=== PATIENT | female | born 1945 | race Caucasian/White ===

== ENCOUNTER 2018-04-14 23:23 | Inpatient (IN) | payer BC, MEDICARE ==
--- NOTE | 2018-04-14 23:41 | ERNOTE ---
GI Bleeding/Rectal Pain ER Presenting Symptoms: rectal bleeding Time Seen by Provider: 04/14/18 23:28 Source: patient Exam Limitations: no limitations Allergies/Adverse Reactions: Allergies alendronate sodium [From Fosamax] Allergy (Verified 04/14/18 23:39) pneumococcal 23-valent polysacchari [From Pneumovax 23] Allergy (Verified 23:39) escitalopram oxalate [From Lexapro] Adverse Reaction (Mild, Verified 04/14/18 23 :39) Rapid Heart Rate Home Medications: HOME MEDICATIONS Letrozole [Femara] 2.5 mg PO DAILY 12/06/14 [Last Taken 12/06/14 08:00 2.5mg] Levothyroxine Sodium [Synthroid] 50 mcg PO DAILY 12/06/14 [Last Taken 04/14/18 10:00] Lisinopril [Zestril] 10 mg PO DAILY 12/06/14 [Last Taken 04/14/18 10:00] Pravastatin Sodium [Pravachol] 40 mg PO HS 12/06/14 [Last Taken 04/13/18 21:00] amLODIPine BESYLATE [Norvasc] 2.5 mg PO DAILY 12/06/14 [Last Taken 04/14/18 10: 00] buPROPion HCL [Wellbutrin SR, Zyban] 150 mg PO BID 12/06/14 [Last Taken 10:00] Calcium Carbonate/Vitamin D3 [Calcium 500 mg-Vit D3 600 Unit] 1 tab PO BID 04/14 [Last Taken 04/14/18 10:00] Metoprolol Tartrate [Lopressor] 25 mg PO BID 04/14/18 [Last Taken 04/14/18 10:00 ] Narrative: Pt had onset of BRB per rectum this evening. She tried to rest then had another BM that was darker but still mostly blood. She presented to the ED at [facility] and found to have h/h of 14.3/41.4 and an hour later 13.6/ 39.1. They do not have surgical coverage and thus felt they could not keep this patient for observation. I was called by Dr. Janette Fajardo from [place] requesting transfer. I called and spoke with Dr. Rubin Marie and he agreed we could accept the patient in transfer and admit observation to watch her hemodynamic status and treat if necessary. Upon arrival pt is A&O and INAD. Timing: getting worse Quality/Severity: Present: moderate, cramping Date of Last Bowel Movement: 04/14/18 - Bloody BM at [facility] Abdominal Pain: Present: suprapubic Rectal Bleeding: Present: bloody diarrhea Associated Symptoms: Reports: light headedness - initially but not consistant Review of Systems - Review of Systems Constitutional: Absent: recent illness, fever, chills EYE: Absent: vision changes Respiratory: Absent: shortness of breath Cardiology: Absent: chest pain Gastrointestinal/Abdominal: Present: See HPI, nausea, constipation - usually . Absent: vomiting Genitourinary: Absent: frequency, dysuria Musculoskeletal: Absent: back pain, muscle pain Skin: Absent: rash Neurological: Present: dizziness/light-headedness Endocrine: Present: excessive sweating, flushing Hematologic/Lymphatic: Absent: easy bruising, easy bleeding Medical History (Last Updated 04/14/18 @ 23:45 by Michaela Phillips RN) Breast cancer (Acute) Hypothyroid (Acute) Depression (Acute) Hypertension (Acute) Hyperlipemia (Acute) H/O lumpectomy Tubal ligation status Surgical History: Surgical History (Last Updated 04/14/18 @ 23:45 by Michaela Phillips, RN) History of lumpectomy of left breast History of tonsillectomy and adenoidectomy Family History: Family History (Last Updated 04/14/18 @ 23:47 by Michaela Phillips, RN) Daughter Acute ulcerative colitis Mother CAD (coronary artery disease) Social History: Preferred Language [place] Psych History No pertinent hx Physical Exam - Physical Exam General Appearance: Present: wd/wn, alert, no apparent distress Head Exam: Present: normal inspection, no evidence of injury Neck: Present: normal inspection, nontender, supple Respiratory: Present: no respiratory distress, normal breath sounds, no accessory muscle use, lungs clear Cardiovascular/Chest: Present: regular rate, rhythm, no murmur Gastrointestinal/Abdominal: Present: normal bowel sounds, nondistended, tenderness - mild periumbilical/ suprapubic. Absent: guarding, rebound Back Exam: Present: normal inspection, no CVA tenderness, no vertebral tenderness Extremity Exam: Present: normal inspection, normal range of motion, no edema Neurological Exam: Present: alert, oriented, normal mood/affect, no motor/ sensory deficits Skin Exam: Present: normal color, warm/dry Lymphatic Exam: Present: no adenopathy ED Progress - Results and Orders Patient's Lab Results:: I have reviewed the patient's lab results. Results and Orders: Laboratory Tests 04/14/18 04/14/18 23:45 23:45 WBC 13.7 H Hgb 13.4 Hct 40.2 PT 11.0 INR (Anticoag Therapy) 1.10 PTT ([place]) 22.7 L - Vital Signs Patient's Vital Signs:: I have reviewed the patient's vital signs. - Progress/Reassessment Progress:: Improved Progress Note-Subjective: 04/15/18 01:20 Pt's daughter questioned why we were not doing a CT scan. I explained that at this time it would not give us much information as she does not have significant symptoms and the gastrographin may actually irritate the problem. I assured her that if the patients condition does worsen then CT or other tests could be done and that for now we will watch her blood counts carefully and do further testing as needed. Daughter stated that she felt better about that. Departure Clinical Impression: Gastrointestinal bleeding, lower - Departure Disposition: Still a patient Condition: Good
[2018-04-14 23:50] LABS: Hematocrit 40.2 % (37.0-47.0); Hemoglobin 13.4 gm/dL (12.5-16.0); Mean Cell Volume 90.3 fl (78-100); Mean Corpuscular Hemoglobin 30.1 pg (27-31); Mean Corpuscular Hgb Conc 33.3 g/dl (32-36); Mean Platelet Volume 11.9 fl (8-12.5); Platelet Count 169 K/mm3 (150-450); Red Blood Count 4.45 M/mm3 (4.2-5.4); Red Cell Distribution Width 13.2 % (11.5-14.0); White Blood Count 13.7 K/mm3 (4.0-10.5)
[2018-04-15 00:30] LABS: INR 1.1 INR (0.90-1.10); Partial Thrombolplastin Time 22.7 Seconds (24-32)
[2018-04-15 03:01] LABS: Hemoglobin 12.9 gm/dL (12.5-16.0); Mean Corpuscular Hemoglobin 30.2 pg (27-31); Mean Corpuscular Hgb Conc 33.9 g/dl (32-36); Mean Platelet Volume 11.1 fl (8-12.5); Platelet Count 168 K/mm3 (150-450); Red Blood Count 4.27 M/mm3 (4.2-5.4); Red Cell Distribution Width 13.2 % (11.5-14.0); White Blood Count 15.2 K/mm3 (4.0-10.5)
[2018-04-15 07:21] LABS: Hematocrit 38.7 % (37.0-47.0); Hemoglobin 13.3 gm/dL (12.5-16.0); Mean Cell Volume 88.4 fl (78-100); Mean Corpuscular Hemoglobin 30.4 pg (27-31); Mean Corpuscular Hgb Conc 34.4 g/dl (32-36); Mean Platelet Volume 11.4 fl (8-12.5); Platelet Count 192 K/mm3 (150-450); Red Blood Count 4.38 M/mm3 (4.2-5.4); Red Cell Distribution Width 13.2 % (11.5-14.0); White Blood Count 17.2 K/mm3 (4.0-10.5)
[2018-04-15] MEDS: METOPROLOL TARTRATE 25 MG TABLET PO SCH ×2 (10:46→20:26)
[2018-04-15] MEDS: amLODIPine BESYLATE 5 MG TABLET PO SCH (10:46)
[2018-04-15] MEDS: LISINOPRIL 10 MG TABLET PO SCH (10:47)
[2018-04-15] MEDS: buPROPion HCL 150 MG TABLET.SA PO SCH ×2 (10:47→20:27)
[2018-04-15] MEDS: LEVOTHYROXINE SODIUM 50 MCG TABLET PO SCH (10:47)
[2018-04-15 11:29] LABS: Hematocrit 37.3 % (37.0-47.0); Hemoglobin 13.1 gm/dL (12.5-16.0); Mean Corpuscular Hemoglobin 30.9 pg (27-31); Mean Corpuscular Hgb Conc 35.1 g/dl (32-36); Mean Platelet Volume 11.5 fl (8-12.5); Platelet Count 177 K/mm3 (150-450); Red Blood Count 4.24 M/mm3 (4.2-5.4); Red Cell Distribution Width 13.2 % (11.5-14.0); White Blood Count 17.2 K/mm3 (4.0-10.5)
--- NOTE | 2018-04-15 16:49 | HP ---
Chief Complaint - Chief Complaint Date of Service: 04/15/18 Time of Service: 09:45 Chief Complaint: Bright Red Blood In Stool History of Present Illness: Brionna is a 72 yo female that began having bright red blood per rectum last evening. She does report bowel movements tend to be constipation and she does have to strain at times. She denies fever, chills. She has had diffuse abdominal pain and weakness. She has not felt any hemorrhoids. She has had routine colonoscopies, but believes it has been about 12 years since her last one and is due. She reports other than constipation she does not usually have bowel problems. She presented initially to the [place] ER but was transferred here overnight for admission with observation as they did not have a surgeon available. Medical History (Last Reviewed 04/25/18 @ 13:23 by Herminia Hurtado RN) Breast cancer (Acute) Hypothyroid (Acute) Depression (Acute) Hypertension (Acute) Hyperlipemia (Acute) H/O lumpectomy Tubal ligation status Surgical History: Surgical History (Last Reviewed 04/25/18 @ 13:23 by Herminia Hrutado RN) History of lumpectomy of left breast History of tonsillectomy and adenoidectomy Family History: Family History (Last Reviewed 04/25/18 @ 13:23 by Herminia Hurtado RN) Daughter Acute ulcerative colitis Chronic colitis Mother CAD (coronary artery disease) Social History: Patient Lives/Resources Home Utilized Occupation retired Preferred Language Citizen Of The [place] Do you have any yazidi or No cultural preference? Smoking Status Former smoker Have you smoked in the past 12 No months Do you dip or chew tobacco No Psych History No pertinent hx Alcohol Use none Drug Use none Review Of Systems (GEN) - Review of Systems Generalized/Overall Review: Present: Weakness, Fatigue. Absent: Chills, Fever EENTM: Present: No Symptoms Reported Respiratory: Present: No Symptoms Reported Cardiac: Present: No Symptoms Reported Abdominal: Present: Nausea, Abdominal Pain, Constipation, Bright blood from rectum Genitourinary: Present: No Symptoms Reported Musculoskeletal: Present: No Symptoms Reported Neurological: Present: No Symptoms Reported Skin: Present: No Symptoms Reported Endocrine: Present: No Symptoms Reported Immunizations: IMMUNIZATION HX Immunizations Up to Date Yes History of Influenza Vaccine Yes Hx Pneumococcal Vaccination Yes Allergies/Adverse Reactions: Allergies Allergy/AdvReac Type Severity Reaction Status Date / Time alendronate sodium Allergy Verified 04/25/18 13:18 [From Fosamax] pneumococcal 23-valent Allergy Verified 04/25/18 13:18 polysacchari [From Pneumovax 23] escitalopram oxalate AdvReac Mild Verified 04/25/18 13:18 [From Lexapro] Home Medications: HOME MEDICATIONS Letrozole [Femara] 2.5 mg PO DAILY 12/06/14 [Last Taken 12/06/14 08:00 2.5mg] Levothyroxine Sodium [Synthroid] 50 mcg PO DAILY 12/06/14 [Last Taken 04/14/18 10:00] Lisinopril [Zestril] 10 mg PO DAILY 12/06/14 [Last Taken 04/14/18 10:00] Pravastatin Sodium [Pravachol] 40 mg PO HS 12/06/14 [Last Taken 04/13/18 21:00] amLODIPine BESYLATE [Norvasc] 2.5 mg PO DAILY 12/06/14 [Last Taken 04/14/18 10: 00] buPROPion HCL [Wellbutrin Sr, Zyban] 150 mg PO BID 12/06/14 [Last Taken 10:00] Calcium Carbonate/Vitamin D3 [Calcium 500 mg-Vit D3 600 Unit] 1 tab PO BID 04/14 [Last Taken 04/14/18 10:00] Metoprolol Tartrate [Lopressor] 25 mg PO BID 04/14/18 [Last Taken 04/14/18 10:00 ] Acetaminophen [Tylenol] 650 mg PO Q6H PRN tablet 04/19/18 [Last Taken Unknown] Levofloxacin [Levaquin] 750 mg PO DAILY #7 tab 04/19/18 [Last Taken Unknown] metronidazole 500 mg tablet 500 mg PO Q8H tab 04/25/18 [Last Taken Unknown] Exam - Exam Vital Signs: Vital Signs - Last Taken Temp 37.6 C 04/15/18 16:13 Pulse 92 04/15/18 16:13 Resp 16 04/15/18 16:13 BP 146/76 04/15/18 16:13 Pulse Ox 94 04/15/18 16:13 Constitutional: Present: Alert, Oriented x3, Cooperative ENT Exam: Present: hearing grossly normal Eye Exam: bilateral eye: normal inspection Respiratory: Present: chest non-tender, lungs clear, normal breath sounds Cardiovascular/Chest: Present: regular rate, rhythm, no murmur Abdomen: Present: Normal bowel sounds, soft, nondistended, tender - mild diffuse tenderness Extremity: Present: normal range of motion, non-tender, normal inspection, no pedal edema Skin Exam: Present: normal color, warm/dry, no cyanosis Eye contact: Present: cooperative, good eye contact, normal speech Diagnostic Studies: Abnormal Lab Results 04/14/18 04/14/18 04/15/18 Range/Units 23:45 23:45 03:00 WBC 13.7 H 15.2 H (4.0-10.5) K/mm3 PTT ([place]) 22.7 L (24-32) Seconds 04/15/18 04/15/18 Range/Units 07:12 11:24 WBC 17.2 H 17.2 H (4.0-10.5) K/mm3 PTT ([place]) (24-32) Seconds Laboratory Results WBC 17.2 K/mm3 (4.0-10.5) H 04/15/18 11:24 RBC 4.24 M/mm3 (4.2-5.4) 04/15/18 11:24 Hgb 13.1 gm/dL (12.5-16.0) 04/15/18 11:24 Hct 37.3 % (37.0-47.0) 04/15/18 11:24 MCV 88.0 fl (78-100) 04/15/18 11:24 MCH 30.9 pg (27-31) 04/15/18 11:24 MCHC 35.1 g/dl (32-36) 04/15/18 11:24 RDW 13.2 % (11.5-14.0) 04/15/18 11:24 Plt Count 177 K/mm3 (150-450) 04/15/18 11:24 MPV 11.5 fl (8-12.5) 04/15/18 11:24 PT 11.0 Seconds (9.0-11.0) 04/14/18 23:45 INR (Anticoag Therapy) 1.10 INR (0.90-1.10) 04/14/18 23:45 PTT ([place]) 22.7 Seconds (24-32) L 04/14/18 23:45 Assessment/Plan - Assessment/Plan (1) Gastrointestinal bleeding, lower Assessment: Brionna is a 72 yo female with acute GI Bleed. Hemoglobin is fairly normal but she is having bright red blood per rectum. Suspect bleeding internal hemorrhoid vs bleeding diverticula. Will admit to observation and monitor serial hemoglobins. If hemoglobin drops may need general surgery consult and blood transfusion. Problem: Acute
[2018-04-15 17:08] LABS: Hemoglobin 13.4 gm/dL (12.5-16.0); Mean Cell Volume 89.2 fl (78-100); Mean Corpuscular Hemoglobin 30.7 pg (27-31); Mean Corpuscular Hgb Conc 34.4 g/dl (32-36); Mean Platelet Volume 12.1 fl (8-12.5); Platelet Count 206 K/mm3 (150-450); Red Blood Count 4.37 M/mm3 (4.2-5.4); Red Cell Distribution Width 13.4 % (11.5-14.0)
[2018-04-15 17:21] LABS: Albumin * 3.6 gm/dl (3.4-5.0); Anion Gap 16.5 mmol/L (6.8-13.8); BUN/Creatinine Ratio 15.9 (9.0-21.6); Bilirubin, Total 0.6 mg/dL (0.0-1.1); Ca. Corrected For Albumin 9.5 mg/dL (8.4-10.2); Calcium * 9.5 mg/dL (7.9-10.9); Carbon Dioxide 20.9 mmol/L (24-32.6); Potassium 4.4 mmol/L (3.4-4.6)
[2018-04-15 17:26] LABS: Total Cells Counted 100
[2018-04-15 18:01] LABS: Band 8 % (0-2.0); Lymphocyte 10 % (20-51); Monocyte 8 % (0-9); Neutrophil 74 % (42-75); Neutrophil # 14.8 K/mm3 (1.3-6.0)
[2018-04-15 18:02] LABS: Platelet Estimate Normal (NORMAL); RBC Morphology Normal (NORMAL)
[2018-04-15] MEDS ORDERED: DIATRIZOATE MEGLUMINE, SODIUM 30 ML BTL PO ONE (20:01)
[2018-04-15] MEDS: CALCIUM CARBONATE/VITAMIN D3 1 TAB TABLET PO SCH (20:26)
[2018-04-15] MEDS: SIMVASTATIN 20 MG TABLET PO SCH (20:28)
[2018-04-15] MEDS: ONDANSETRON HCL/PF 2 MG/ML VIAL IV PRN (22:15)
[2018-04-16] MEDS: CALCIUM CARBONATE/VITAMIN D3 1 TAB TABLET PO SCH ×3 (01:15→20:57)
[2018-04-16] MEDS ORDERED: ACETAMINOPHEN 325 MG TABLET PO PRN (03:03)
[2018-04-16 05:23] LABS: Hematocrit 32.5 % (37.0-47.0); Hemoglobin 11.2 gm/dL (12.5-16.0); Mean Cell Volume 88.1 fl (78-100); Mean Corpuscular Hemoglobin 30.4 pg (27-31); Mean Corpuscular Hgb Conc 34.5 g/dl (32-36); Mean Platelet Volume 11.5 fl (8-12.5); Platelet Count 150 K/mm3 (150-450); Red Blood Count 3.69 M/mm3 (4.2-5.4); Red Cell Distribution Width 13.5 % (11.5-14.0); White Blood Count 15.4 K/mm3 (4.0-10.5)
[2018-04-16 05:36] LABS: Total Cells Counted 100
[2018-04-16 05:38] LABS: Anion Gap 13.4 mmol/L (6.8-13.8); BUN/Creatinine Ratio 16.7 (9.0-21.6); Bilirubin, Total 0.5 mg/dL (0.0-1.1); Ca. Corrected For Albumin 9.4 mg/dL (8.4-10.2); Calcium * 8.9 mg/dL (7.9-10.9); Carbon Dioxide 23.8 mmol/L (24-32.6); Potassium 4.2 mmol/L (3.4-4.6)
[2018-04-16 05:40] LABS: Band 28 % (0-2.0); Dohle Bodies 1+; Immature Granulocyte 1 (0-1); Lymphocyte 6 % (20-51); Neutrophil 65 % (42-75); Platelet Estimate Normal (NORMAL); Toxic Granulation 1+
[2018-04-16] MEDS: NORMAL SALINE 1,000 ML IV PRN ×2 (05:49→21:04)
[2018-04-16] MEDS ORDERED: LEVOFLOXACIN IN DEXTROSE 5 % 750 MG/150 ML BAG IV ONE (06:00)
[2018-04-16] MEDS: metroNIDAZOLE/SODIUM CHLORIDE 500 MG/100 ML BAG IV SCH ×2 (08:11→15:15)
[2018-04-16] MEDS: METOPROLOL TARTRATE 25 MG TABLET PO SCH ×2 (08:12→20:58)
[2018-04-16] MEDS: LEVOTHYROXINE SODIUM 50 MCG TABLET PO SCH (08:12)
[2018-04-16] MEDS: SACCHAROMYCES BOULARDII 250 MG CAPSULE PO SCH ×2 (08:12→20:57)
[2018-04-16] MEDS: LISINOPRIL 10 MG TABLET PO SCH (08:12)
[2018-04-16] MEDS: amLODIPine BESYLATE 5 MG TABLET PO SCH (08:13)
[2018-04-16] MEDS: buPROPion HCL 150 MG TABLET.SA PO SCH ×2 (08:13→21:00)
[2018-04-16] MEDS ORDERED: CALCIUM CARBONATE 500 MG TAB.CHEW PO PRN (16:23)
[2018-04-16] MEDS: SIMVASTATIN 20 MG TABLET PO SCH (21:01)
[2018-04-17] MEDS: metroNIDAZOLE/SODIUM CHLORIDE 500 MG/100 ML BAG IV SCH ×3 (00:03→16:13)
[2018-04-17] MEDS: ONDANSETRON HCL/PF 2 MG/ML VIAL IV PRN (07:49)
[2018-04-17] MEDS: PANTOPRAZOLE SODIUM 40 MG TABLET.EC PO SCH (07:49)
[2018-04-17 08:44] LABS: Hematocrit 32.2 % (37.0-47.0); Mean Corpuscular Hemoglobin 30.4 pg (27-31); Mean Corpuscular Hgb Conc 34.2 g/dl (32-36); Mean Platelet Volume 12.1 fl (8-12.5); Platelet Count 130 K/mm3 (150-450); Red Blood Count 3.62 M/mm3 (4.2-5.4); Red Cell Distribution Width 13.6 % (11.5-14.0); White Blood Count 14.1 K/mm3 (4.0-10.5)
[2018-04-17 08:45] LABS: Total Cells Counted 100
[2018-04-17 08:54] LABS: Albumin * 2.6 gm/dl (3.4-5.0); Anion Gap 12.4 mmol/L (6.8-13.8); BUN/Creatinine Ratio 12.3 (9.0-21.6); Bilirubin, Total 0.5 mg/dL (0.0-1.1); Ca. Corrected For Albumin 9.3 mg/dL (8.4-10.2); Calcium * 8.5 mg/dL (7.9-10.9); Potassium 3.4 mmol/L (3.4-4.6); Total Protein 5.9 gm/dL (6.2-8.2)
[2018-04-17] MEDS: METOPROLOL TARTRATE 25 MG TABLET PO SCH ×2 (09:25→20:22)
[2018-04-17] MEDS: SACCHAROMYCES BOULARDII 250 MG CAPSULE PO SCH ×2 (09:25→20:22)
[2018-04-17] MEDS: amLODIPine BESYLATE 5 MG TABLET PO SCH (09:25)
[2018-04-17] MEDS: LEVOTHYROXINE SODIUM 50 MCG TABLET PO SCH (09:25)
[2018-04-17] MEDS: LISINOPRIL 10 MG TABLET PO SCH (09:26)
[2018-04-17] MEDS: buPROPion HCL 150 MG TABLET.SA PO SCH ×2 (09:26→20:23)
[2018-04-17] MEDS: CALCIUM CARBONATE/VITAMIN D3 1 TAB TABLET PO SCH ×2 (09:26→20:22)
[2018-04-17 09:28] LABS: Band 14 % (0-2.0); Lymphocyte 7 % (20-51); Monocyte 8 % (0-9); Neutrophil 71 % (42-75)
[2018-04-17 09:29] LABS: Platelet Estimate Decreased (NORMAL)
[2018-04-17 09:32] LABS: Dohle Bodies Trace; RBC Morphology Normal (NORMAL); Toxic Granulation 1+
[2018-04-17] MEDS ORDERED: CALCIUM CARBONATE 500 MG TAB.CHEW PO PRN (09:59)
--- NOTE | 2018-04-17 09:59 | PN ---
Subjective - Date and Time Seen Date: 04/16/18 Time: 12:30 Subjective Narrative: Continues to have dark bloody stools, feels fatigue. Diffuse abdominal pain. CT overnight performed for fever and worsening abdominal pain. CT showed evidence of severe colitis. Today family reports that she had been cooking chicken for a home made gabonese meal and was touching a lot of raw chicken in preparation for the meal. Objective - Vitals Vitals: Last Vital Signs - Abnormal Lab Findings Abnormal Lab Findings: Abnormal Lab Results 04/17/18 04/17/18 Range/Units 08:35 08:35 WBC 14.1 H (4.0-10.5) K/mm3 RBC 3.62 L (4.2-5.4) M/mm3 Hgb 11.0 L (12.5-16.0) gm/dL Hct 32.2 L (37.0-47.0) % Plt Count 130 L (150-450) K/mm3 Band Neuts % (Manual) 14 H (0-2.0) % Lymphocytes % (Manual) 7 L (20-51) % Neutrophils # (Manual) 10.0 H (1.3-6.0) K/mm3 Lymphocytes # (Manual) 1.0 L (1.5-3.5) k/mm3 Monocytes # (Manual) 1.1 H (0.0-1.0) k/mm3 Platelet Estimate Decreased L (NORMAL) Sodium 131 L (132-142) mmol/L Carbon Dioxide 21.0 L (24-32.6) mmol/L Creatinine 1.54 H D (0.4-1.4) mg/dL Est GFR (Non-Af Amer) 35 L D (60-130) mL/min Random Glucose 113 H (70-110) mg/dL ALT 15 L (19-67) U/L Total Protein 5.9 L (6.2-8.2) gm/dL Albumin 2.6 L (3.4-5.0) gm/dl - Exam Constitutional: Present: Alert, Oriented x3, Cooperative Respiratory: Present: lungs clear, respiratory distress Cardiovascular/Chest: Present: regular rate, rhythm, no murmur Abdomen: Present: Normal bowel sounds, soft, nondistended, tender - diffuse tenderness. Absent: guarding, firm Skin Exam: Present: normal color, warm/dry, no cyanosis Assessment/Plan - Problems/Diagnosis (1) Infectious colitis Problem: Acute Narrative: Suspicious of infectious colitis possibly salmanella due to handling uncooked chicken. Will treat with floroquinolone for coverage as well as flagyl. No evidence of abscess or perforation on CT. Bleeding appears to have stopped as blood in stool is dark and hemoglobin is stable. WBC elevating. Will admit to acute inpatient status, will take a few days of antibiotics IV to see that WBC is trending down. Will get stool culture.
--- NOTE | 2018-04-17 10:00 | PN ---
Subjective - Date and Time Seen Date: 04/17/18 Time: 10:00 Subjective Narrative: Reports feeling a little better today. Still weak, but less abdominal pain. Stools still dark maroon. Objective - Vitals Vitals: Last Vital Signs Temp 35.5 C L 04/17/18 06:54 Pulse 87 04/17/18 09:26 Resp 17 04/17/18 06:54 BP 137/58 04/17/18 09:26 Pulse Ox 94 04/17/18 06:54 - Abnormal Lab Findings Abnormal Lab Findings: Abnormal Lab Results 04/17/18 04/17/18 Range/Units 08:35 08:35 WBC 14.1 H (4.0-10.5) K/mm3 RBC 3.62 L (4.2-5.4) M/mm3 Hgb 11.0 L (12.5-16.0) gm/dL Hct 32.2 L (37.0-47.0) % Plt Count 130 L (150-450) K/mm3 Band Neuts % (Manual) 14 H (0-2.0) % Lymphocytes % (Manual) 7 L (20-51) % Neutrophils # (Manual) 10.0 H (1.3-6.0) K/mm3 Lymphocytes # (Manual) 1.0 L (1.5-3.5) k/mm3 Monocytes # (Manual) 1.1 H (0.0-1.0) k/mm3 Platelet Estimate Decreased L (NORMAL) Sodium 131 L (132-142) mmol/L Carbon Dioxide 21.0 L (24-32.6) mmol/L Creatinine 1.54 H D (0.4-1.4) mg/dL Est GFR (Non-Af Amer) 35 L D (60-130) mL/min Random Glucose 113 H (70-110) mg/dL ALT 15 L (19-67) U/L Total Protein 5.9 L (6.2-8.2) gm/dL Albumin 2.6 L (3.4-5.0) gm/dl - Exam Constitutional: Present: Alert, Oriented x3, Cooperative Respiratory: Present: lungs clear, normal breath sounds, no respiratory distress Cardiovascular/Chest: Present: regular rate, rhythm, no murmur Abdomen: Present: Normal bowel sounds, soft, nondistended, tender - mild diffuse tenderness Skin Exam: Present: normal color, warm/dry, no cyanosis Assessment/Plan - Problems/Diagnosis (1) Infectious colitis Problem: Acute Narrative: Improving today after starting antibiotics. Hgb stable. Continue antibiotics, will start advancing diet as tolerated.
[2018-04-17] MEDS: ONDANSETRON HCL/PF 2 MG/ML VIAL IV SCH ×3 (11:28→20:24)
[2018-04-17] MEDS: NORMAL SALINE 1,000 ML IV PRN (13:29)
[2018-04-17] MEDS: SIMVASTATIN 20 MG TABLET PO SCH (20:23)
[2018-04-18] MEDS: metroNIDAZOLE/SODIUM CHLORIDE 500 MG/100 ML BAG IV SCH ×4 (00:44→23:54)
[2018-04-18] MEDS: NORMAL SALINE 1,000 ML IV PRN ×2 (04:52→20:51)
[2018-04-18 05:20] LABS: Hematocrit 30.1 % (37.0-47.0); Hemoglobin 10.4 gm/dL (12.5-16.0); Mean Cell Volume 88.5 fl (78-100); Mean Corpuscular Hemoglobin 30.6 pg (27-31); Mean Corpuscular Hgb Conc 34.6 g/dl (32-36); Mean Platelet Volume 11.9 fl (8-12.5); Platelet Count 147 K/mm3 (150-450); Red Cell Distribution Width 13.6 % (11.5-14.0); White Blood Count 11.6 K/mm3 (4.0-10.5)
[2018-04-18 05:28] LABS: Total Cells Counted 100
[2018-04-18 05:32] LABS: Albumin * 2.4 gm/dl (3.4-5.0); Anion Gap 8.5 mmol/L (6.8-13.8); BUN/Creatinine Ratio 7.9 (9.0-21.6); Bilirubin, Total 0.3 mg/dL (0.0-1.1); Ca. Corrected For Albumin 9.2 mg/dL (8.4-10.2); Calcium * 8.2 mg/dL (7.9-10.9); Carbon Dioxide 20.5 mmol/L (24-32.6); Total Protein 5.4 gm/dL (6.2-8.2)
[2018-04-18 05:48] LABS: Band 12 % (0-2.0); Lymphocyte 7 % (20-51); Monocyte 6 % (0-9); Neutrophil 75 % (42-75); Neutrophil # 8.7 K/mm3 (1.3-6.0)
[2018-04-18 05:51] LABS: Platelet Estimate Decreased (NORMAL)
[2018-04-18 05:52] LABS: RBC Morphology Normal (NORMAL)
[2018-04-18] MEDS ORDERED: LEVOFLOXACIN IN DEXTROSE 5 % 500 MG/100 ML BAG IV SCH (06:00)
[2018-04-18] MEDS: FEMARA 2.5 MG PO SCH ×2 (07:24→09:46)
[2018-04-18] MEDS: PANTOPRAZOLE SODIUM 40 MG TABLET.EC PO SCH (07:30)
[2018-04-18] MEDS: ONDANSETRON HCL/PF 2 MG/ML VIAL IV SCH ×2 (07:30→10:42)
[2018-04-18] MEDS ORDERED: POTASSIUM CHLORIDE 20 MEQ TABLET.SA PO ONE (09:00)
[2018-04-18] MEDS: buPROPion HCL 150 MG TABLET.SA PO SCH ×2 (09:41→20:45)
[2018-04-18] MEDS: CALCIUM CARBONATE/VITAMIN D3 1 TAB TABLET PO SCH ×2 (09:41→20:43)
[2018-04-18] MEDS: LEVOTHYROXINE SODIUM 50 MCG TABLET PO SCH (09:41)
[2018-04-18] MEDS: amLODIPine BESYLATE 5 MG TABLET PO SCH (09:41)
[2018-04-18] MEDS: LISINOPRIL 10 MG TABLET PO SCH (09:41)
[2018-04-18] MEDS: METOPROLOL TARTRATE 25 MG TABLET PO SCH ×2 (09:41→20:45)
[2018-04-18] MEDS: SACCHAROMYCES BOULARDII 250 MG CAPSULE PO SCH ×2 (09:41→20:44)
[2018-04-18] MEDS ORDERED: ONDANSETRON HCL/PF 2 MG/ML VIAL IV PRN (15:57)
[2018-04-18] MEDS: SIMVASTATIN 20 MG TABLET PO SCH (20:44)
[2018-04-19] MEDS: FEMARA 2.5 MG PO SCH ×2 (06:15→08:18)
[2018-04-19] MEDS: PANTOPRAZOLE SODIUM 40 MG TABLET.EC PO SCH (06:21)
[2018-04-19] MEDS: metroNIDAZOLE/SODIUM CHLORIDE 500 MG/100 ML BAG IV SCH (07:01)
[2018-04-19] MEDS: LEVOTHYROXINE SODIUM 50 MCG TABLET PO SCH (08:18)
[2018-04-19] MEDS: SACCHAROMYCES BOULARDII 250 MG CAPSULE PO SCH (08:18)
[2018-04-19] MEDS: CALCIUM CARBONATE/VITAMIN D3 1 TAB TABLET PO SCH (08:18)
[2018-04-19] MEDS: buPROPion HCL 150 MG TABLET.SA PO SCH (08:19)
[2018-04-19] MEDS: amLODIPine BESYLATE 5 MG TABLET PO SCH (08:19)
[2018-04-19] MEDS: LISINOPRIL 10 MG TABLET PO SCH (08:19)
[2018-04-19] MEDS: METOPROLOL TARTRATE 25 MG TABLET PO SCH (08:20)
[2018-04-19 09:57] LABS: Hematocrit 30.8 % (37.0-47.0); Hemoglobin 10.6 gm/dL (12.5-16.0); Mean Corpuscular Hemoglobin 30.3 pg (27-31); Mean Corpuscular Hgb Conc 34.4 g/dl (32-36); Mean Platelet Volume 11.6 fl (8-12.5); Neutrophil # 6.9 K/mm3 (1.3-6.0); Neutrophil % 71.7 % (42-75.0); Platelet Count 174 K/mm3 (150-450); Red Cell Distribution Width 13.8 % (11.5-14.0); White Blood Count 9.6 K/mm3 (4.0-10.5)
[2018-04-19 10:45] LABS: Albumin * 2.5 gm/dl (3.4-5.0); Anion Gap 10.9 mmol/L (6.8-13.8); BUN/Creatinine Ratio 4.3 (9.0-21.6); Bilirubin, Total 0.3 mg/dL (0.0-1.1); Ca. Corrected For Albumin 8.7 mg/dL (8.4-10.2); Calcium * 7.8 mg/dL (7.9-10.9); Carbon Dioxide 21.3 mmol/L (24-32.6); Potassium 3.2 mmol/L (3.4-4.6); Total Protein 5.6 gm/dL (6.2-8.2)
--- NOTE | 2018-04-19 12:39 | PN ---
Subjective - Date and Time Seen Date: 04/18/18 Time: 12:39 Subjective Narrative: Feeling much better today. No fever, abdominal pain is gone. Tolerating food with taking zofran prior to eating. Objective - Vitals Vitals: Last Vital Signs Selected Entries 04/18/18 10:31 Temperature 36.4 C Pulse Rate 77 Respiratory Rate 16 Blood Pressure 123/63 O2 Sat by Pulse Oximetry 96 Oxygen Delivery Method Room Air - Abnormal Lab Findings Abnormal Lab Findings: Abnormal Lab Results - Exam Constitutional: Present: Alert, Oriented x3, Cooperative ENT Exam: Present: hearing grossly normal Respiratory: Present: chest non-tender, lungs clear Cardiovascular/Chest: Present: regular rate, rhythm, no murmur Abdomen: Present: Normal bowel sounds, soft, nontender, nondistended Skin Exam: Present: normal color, warm/dry, no cyanosis Appearance: Present: appropriate appearance, appropriate insight Eye contact: Present: cooperative, good eye contact, normal speech Assessment/Plan - Problems/Diagnosis (1) Infectious colitis Problem: Acute Narrative: Continues to improve today. Still taking zofran prior to meals, will stop the zofran and see if she can tolerate orals without having to take zofran before. Will switch antibiotics to orals and anticipate discharge to home tomorrow.
--- NOTE | 2018-04-19 12:58 | DS ---
(1) Infectious colitis Problem: Acute (2) Lower GI bleeding Problem: Acute Description of Stay: Brionna is a 72 yo female that was admitted for Lower GI Bleed. She was monitored with serial hemograms and hgb remained stable and the bright red blood turned darker indicating the blood was old. However WBC began increasing and she had a fever. Family reported that she had been preparing raw chicken for a homemade [place] meal. Stool culture was obtained but ultimately had no growth. Based on clinical findings and a CT scan showing severe colitis it was suspected that she had infectious colitis from a bacterial sources, possibly salmonella. She was treated with levaquin and metronidazole and zofran and symptoms improve, WBC normalized over time, and GI bleeding stopped. Once symptoms resolved and WBC normalized she was discharged to home with Rx for a complete course of PO antibiotics. She is looking to establish with a new PCP and will be set up with Dr. Wilson. She is also in need of a colonoscopy for screening, although because of her recent episode a diagnostic colonoscopy would also be needed. She will be scheduled with Dr. Palomino. She will also be given an Rx for probiotics. Procedures Performed: none Results and Findings: Pending Mircobiology Results 04/16/18 05:45 Blood Blood Culture - Preliminary NO GROWTH AFTER 48 HOURS 04/16/18 00:00 Blood Blood Culture - Preliminary NO GROWTH AFTER 48 HOURS Lab Pending Results 04/14/18 23:45: WBC 13.7 H, RBC 4.45, Hgb 13.4, Hct 40.2, MCV 90.3, MCH 30.1, MCHC 33.3, RDW 13.2, Plt Count 169, MPV 11.9 04/14/18 23:45: PT 11.0, INR (Anticoag Therapy) 1.10, PTT ([place]) 22.7 L 04/15/18 03:00: WBC 15.2 H, RBC 4.27, Hgb 12.9, Hct 38.0, MCV 89.0, MCH 30.2, MCHC 33.9, RDW 13.2, Plt Count 168, MPV 11.1 04/15/18 07:12: WBC 17.2 H, RBC 4.38, Hgb 13.3, Hct 38.7, MCV 88.4, MCH 30.4, MCHC 34.4, RDW 13.2, Plt Count 192, MPV 11.4 04/15/18 11:24: WBC 17.2 H, RBC 4.24, Hgb 13.1, Hct 37.3, MCV 88.0, MCH 30.9, MCHC 35.1, RDW 13.2, Plt Count 177, MPV 11.5 04/15/18 17:02: WBC 20.0 H, RBC 4.37, Hgb 13.4, Hct 39.0, MCV 89.2, MCH 30.7, MCHC 34.4, RDW 13.4, Plt Count 206, MPV 12.1, Neutrophils % (Manual) 74, Band Neuts % (Manual) 8 H, Lymphocytes % (Manual) 10 L, Monocytes % (Manual) 8, Neutrophils # (Manual) 14.8 H, Lymphocytes # (Manual) 2.0, Monocytes # (Manual) 1.6 H, Platelet Estimate Normal, RBC Morphology Normal 04/15/18 17:02: Sodium 135, Plasma Sodium 136, Potassium 4.4, Chloride 102, Carbon Dioxide 20.9 L, Anion Gap 16.5 H, BUN 37 H, Creatinine 2.32 H, Est GFR ( Non-Af Amer) 22 L D, BUN/Creatinine Ratio 15.9, Random Glucose 146 H, Calcium 9.5, Calcium Adj for Albumin 9.5, Total Bilirubin 0.6, AST 25, ALT 24, Alkaline Phosphatase 73, Total Protein 7.0, Albumin 3.6 04/16/18 05:20: WBC 15.4 H D, RBC 3.69 L, Hgb 11.2 L, Hct 32.5 L, MCV 88.1, MCH 30.4, MCHC 34.5, RDW 13.5, Plt Count 150, MPV 11.5, Neutrophils % (Manual) 65, Band Neuts % (Manual) 28 H, Lymphocytes % (Manual) 6 L, Immature Granulocytes 1 , Neutrophils # (Manual) 10.0 H, Lymphocytes # (Manual) 0.9 L, Toxic Granulation 1+, Toxic Vacuolation 2+, Dohle Bodies 1+, Platelet Estimate Normal 04/16/18 05:20: Sodium 132, Plasma Sodium 132, Potassium 4.2, Chloride 99, Carbon Dioxide 23.8 L, Anion Gap 13.4, BUN 37 H, Creatinine 2.21 H, Est GFR (Non -Af Amer) 23 L, BUN/Creatinine Ratio 16.7, Random Glucose 111 H, Calcium 8.9, Calcium Adj for Albumin 9.4, Total Bilirubin 0.5, AST 23, ALT 19, Alkaline Phosphatase 60, Total Protein 6.0 L, Albumin 3.0 L 04/16/18 05:45: Lactic Acid, Venous 1.1 04/17/18 08:35: WBC 14.1 H, RBC 3.62 L, Hgb 11.0 L, Hct 32.2 L, MCV 89.0, MCH 30.4, MCHC 34.2, RDW 13.6, Plt Count 130 L, MPV 12.1, Neutrophils % (Manual) 71 , Band Neuts % (Manual) 14 H, Lymphocytes % (Manual) 7 L, Monocytes % (Manual) 8 , Neutrophils # (Manual) 10.0 H, Lymphocytes # (Manual) 1.0 L, Monocytes # ( Manual) 1.1 H, Toxic Granulation 1+, Dohle Bodies Trace, Platelet Estimate Decreased L, RBC Morphology Normal 04/17/18 08:35: Sodium 131 L, Plasma Sodium 131, Potassium 3.4, Chloride 101, Carbon Dioxide 21.0 L, Anion Gap 12.4, BUN 19, Creatinine 1.54 H D, Est GFR (Non -Af Amer) 35 L D, BUN/Creatinine Ratio 12.3, Random Glucose 113 H, Calcium 8.5, Calcium Adj for Albumin 9.3, Total Bilirubin 0.5, AST 16, ALT 15 L, Alkaline Phosphatase 67, Total Protein 5.9 L, Albumin 2.6 L 04/18/18 05:17: WBC 11.6 H, RBC 3.40 L, Hgb 10.4 L, Hct 30.1 L, MCV 88.5, MCH 30.6, MCHC 34.6, RDW 13.6, Plt Count 147 L, MPV 11.9, Neutrophils % (Manual) 75 , Band Neuts % (Manual) 12 H, Lymphocytes % (Manual) 7 L, Monocytes % (Manual) 6 , Neutrophils # (Manual) 8.7 H, Lymphocytes # (Manual) 0.8 L, Monocytes # ( Manual) 0.7, Platelet Estimate Decreased L, RBC Morphology Normal 04/18/18 05:17: Sodium 125 L, Plasma Sodium 125 L, Potassium 3.0 L, Chloride 99 , Carbon Dioxide 20.5 L, Anion Gap 8.5, BUN 11, Creatinine 1.40, Est GFR (Non- Af Amer) 39 L, BUN/Creatinine Ratio 7.9 L, Random Glucose 94, Calcium 8.2, Calcium Adj for Albumin 9.2, Total Bilirubin 0.3, AST 14, ALT 15 L, Alkaline Phosphatase 62, Total Protein 5.4 L, Albumin 2.4 L 04/19/18 09:40: WBC 9.6, RBC 3.50 L, Hgb 10.6 L, Hct 30.8 L, MCV 88.0, MCH 30.3 , MCHC 34.4, RDW 13.8, Plt Count 174, MPV 11.6, Immature Gran % (Auto) 1.60 H, Immature Gran # (Auto) 0.15 H, Neutrophils % 71.7, Lymphocytes % 11.2 L, Monocytes % 13.3 H, Eosinophils % 1.8, Basophils % 0.4, Nucleated RBC % 0.0, Neutrophils # 6.9 H, Lymphocytes # 1.08 L, Monocytes # 1.3 H, Eosinophils # 0.2 , Absolute Basophils 0.0 04/19/18 09:40: Sodium 134, Plasma Sodium 134, Potassium 3.2 L, Chloride 105, Carbon Dioxide 21.3 L, Anion Gap 10.9, BUN 5 D, Creatinine 1.16, Est GFR (Non- Af Amer) 49 L D, BUN/Creatinine Ratio 4.3 L, Random Glucose 118 H, Calcium 7.8 L , Calcium Adj for Albumin 8.7, Total Bilirubin 0.3, AST 16, ALT 14 L, Alkaline Phosphatase 66, Total Protein 5.6 L, Albumin 2.5 L Discharge Location: Home Disposition: Home self-care Condition: Good Discharge Activity: Activity as tolerated Discharge Diet: General/regular food Referrals: Khushbu Palomino DO [Staff Physician] - Two Weeks (Needs colonoscopy for screening and lower GI Bleed) Monesrrat Wilson DO [Staff Physician] - One Week (Establish Primary Care) Problem Oriented Discharge Instructions to Patient/Family: Colitis Additional Patient Instructions (free text): -Please make TCM appointment unless usp discharge. Thank you! [facility] @ [phone]. Prescriptions (Any new or edited meds): Levofloxacin [Levaquin] 750 mg PO DAILY #7 tab metroNIDAZOLE [Flagyl] 500 mg PO Q8H #21 tab Ondansetron HCl [Zofran] 4 mg PO Q6H #30 tab Saccharomyces Boulardii [Florastor] 250 mg PO BID #60 cap Complete Home Medications List: Complete Home Medication List: Letrozole [Femara] 2.5 mg PO DAILY 12/06/14 Levothyroxine Sodium [Synthroid] 50 mcg PO DAILY 12/06/14 Lisinopril [Zestril] 10 mg PO DAILY 12/06/14 Pravastatin Sodium [Pravachol] 40 mg PO HS 12/06/14 amLODIPine BESYLATE [Norvasc] 2.5 mg PO DAILY 12/06/14 buPROPion HCL [Wellbutrin Sr, Zyban] 150 mg PO BID 12/06/14 Calcium Carbonate/Vitamin D3 [Calcium 500 mg-Vit D3 600 Unit] 1 tab PO BID 04/14 Metoprolol Tartrate [Lopressor] 25 mg PO BID 04/14/18 Acetaminophen [Tylenol] 650 mg PO Q6H PRN tablet 04/19/18 Levofloxacin [Levaquin] 750 mg PO DAILY #7 tab 04/19/18 Ondansetron HCl [Zofran] 4 mg PO Q6H #30 tab 04/19/18 Saccharomyces Boulardii [Florastor] 250 mg PO BID #60 cap 04/19/18 metroNIDAZOLE [Flagyl] 500 mg PO Q8H #21 tab 04/19/18
[2018-04-19 14:21] VITALS: BP 114/66
== END 2018-04-19 14:26 | disposition home or self-care (01) | DRG 373 ==
LOC: ER 23:23 → MS 23:23
PROVIDERS: ADMIT Family Medicine; ATTEND Family Medicine
DX: K92.2 Gastrointestinal hemorrhage, unspecified
CPT/HCPCS: 36415; 74176; 80053; 83605; 85007; 85025; 85027; 85610; 85730; 87040; 87045; 87046; 99285; J2405